=== PATIENT | female | born 1990 | race Two or more races ===

== ENCOUNTER 2021-08-29 18:27 | Emergency (ER) | payer OTHER ==
[~2021-08-29] VITALS: Ht 160 cm; Wt 68.1 kg
--- NOTE | 2021-08-29 18:40 | NUR ---
BIBS FOR C/O N/V AND FATIGUE, NECK AND BACK PAIN 7/10 X3 DAYS. PLACED COMFORTABLY IN BED. VITALS CHECKED.
--- NOTE | 2021-08-29 18:55 | NUR ---
SEEN BY CARMEN BONILLA AT BEDSIDE
[2021-08-29] MEDS ORDERED: ONDANSETRON HCL/PF 4 MG/2 ML VIAL IVP ONE ×2 (19:00→19:30)
[2021-08-29] MEDS ORDERED: IV NS 0.9% 1,000 ML BAG IV ONE ×2 (19:00→19:30)
--- NOTE | 2021-08-29 19:23 | NUR ---
IV CANNULA INSERTED ON RIGHT AC USING G20 NEEDLE. BLOOD DRAWN AND SENT TO LAB.
--- NOTE | 2021-08-29 19:23 | NUR ---
URINE SPECIMEN SENT TO LAB
[2021-08-29] MEDS ORDERED: ONDANSETRON HCL/PF 4 MG/2 ML VIAL ONE (19:27)
[2021-08-29] MEDS ORDERED: MORPHINE SULFATE INJ 2 MG/ML DISP.SYRIN ONE (19:28)
[2021-08-29 19:29] LABS: CALCIUM, SERUM 9.3 mg/dL (8.5-10.1); CREATININE 0.9 mg/dL (0.6-1.3); POTASSIUM 3.8 mmol/L (3.5-5.1)
[2021-08-29] MEDS ORDERED: MORPHINE SULFATE INJ 2 MG/ML DISP.SYRIN IV ONE (19:30)
--- NOTE | 2021-08-29 19:30 | NUR ---
PATIENT SIGNED DISCLAIMER THAT SHE IS .
[2021-08-29 19:35] LABS: ALBUMIN 4.7 g/dL (3.4-5.0); BILIRUBIN,DIRECT 0.1 mg/dL (0.0-0.2); BILIRUBIN,TOTAL 0.5 mg/dL (0.2-1.0); BILIRUBIN,URINE NEGATIVE (NEGATIVE); COLOR,URINE YELLOW (YELLOW); LEUKOCYTE ESTERASE ,URINE NEGATIVE (NEGATIVE); NITRITE, URINE NEGATIVE (NEGATIVE); PROTEIN,URINE NEGATIVE (NEGATIVE); TOTAL PROTEIN, SERUM 8.1 g/dL (6.4-8.2); UGLUCOSE NEGATIVE (NEGATIVE); UROBILINOGEN,URINE 0.2 EU/dL (0.2)
--- NOTE | 2021-08-29 19:41 | NUR ---
MEDS GIVEN THROUGH IV
[2021-08-29 19:56] LABS: BACTERIA,URINE 1+ /HPF (None Seen); MUCUS,URINE Moderate /LPF (None Seen); RBC,URINE 0-2 /HPF (0-2); WBC,URINE 0-2 /HPF (0-3)
--- NOTE | 2021-08-29 19:56 | NUR ---
WHEELED PATIENT TO CT DEPT
[2021-08-29 19:57] LABS: BASOPHILS % (AUTO) 0.9 % (0.0-2.0); EOSINOPHILS % (AUTO) 2.1 % (0.0-6.0); HEMATOCRIT 41 % (33-45); HEMOGLOBIN 13.6 g/dL (11.5-14.8); LYMPHOCYTES # (AUTO) 1.8 K/uL (0.8-4.8); LYMPHOCYTES % (AUTO) 33.2 % (20.0-44.0); MEAN CORPUSCULAR HGB CONC 33 g/dl (31.0-36.0); MEAN CORPUSCULAR VOLUME 87 fL (82-100); MONOCYTES # (AUTO) 0.4 K/uL (0.1-1.30); MONOCYTES % (AUTO) 7.3 % (2.0-12.0); NEUTROPHILS # (AUTO) 3.1 K/uL (1.8-8.9); NEUTROPHILS % (AUTO) 56.5 % (43.0-81.0); PLATELET COUNT (AUTO) 272 K/uL (150-450); RED BLOOD CELL COUNT(AUTO) 4.73 MIL/uL (4.0-5.2); WHITE BLOOD COUNT (AUTO) 5.4 K/uL (4.3-11.0)
[2021-08-29] MEDS ORDERED: ONDA4TAB5 PO (20:52)
[2021-08-29 21:49] VITALS: BP 101/65
--- NOTE | 2021-08-29 21:49 | NUR ---
Patient discharged to home in stable condition. Written and verbal after care instructions given. Patient verbalizes understanding of instruction.
--- NOTE | 2021-08-29 21:49 | NUR ---
IV removed. Catheter intact and site benign. Pressure and 4x4 applied to site. No bleeding noted.
== END 2021-08-29 21:51 | disposition home or self-care (01) ==
LOC: ER 18:38
DX: R10.9 Unspecified abdominal pain (principal); Z87.448 Personal history of other diseases of urinary system; Z87.19 Personal history of other diseases of the digestive system; Z88.8 Allergy status to other drugs, medicaments and biological substances; Z79.899 Other long term (current) drug therapy
CPT/HCPCS: 36415; 74176; 76705; 80048; 80076; 81001; 83690; 84703; 85025; 96361; 96374; 96375; 99284; J2270; J2405; J7030